=== PATIENT | female | born 1970 | race Caucasian/White ===

== ENCOUNTER → 2021-05-15 | Outpatient (CLI) | payer OTHER ==
--- NOTE | 2021-05-15 13:13 | RAD ---
XR KNEE_RT 1-2 VIEWS DATE: 05/15/2021 10:50 AM INDICATION: FALL DOWN STAIRS, PAIN COMPARISON: None. FINDINGS: Bones: There is no evidence of acute fracture or dislocation. Joints: The joint spaces are normal. There is no joint effusion. Miscellaneous: None. IMPRESSION: No evidence of acute fracture. Electronically signed by: Simone Drake MD (05/15/2021 1:11 PM) [id number]
--- NOTE | 2021-05-15 13:13 | RAD ---
XR LUMBAR SPINE 2-3V DATE: 05/15/2021 10:50 AM INDICATION: FALL DOWN STAIRS, PAIN COMPARISON: None. FINDINGS: Five non-rib bearing lumbar-type vertebral bodies are present. Bones/Alignment: No evidence of acute compression fracture. There is no listhesis. Joints: Multilevel predominately mild degenerative disc disease, moderate at L5-S1 Miscellaneous: None. IMPRESSION: No evidence of acute compression fracture. Electronically signed by: Simone Drake MD (05/15/2021 1:11 PM) [id number]
--- NOTE | 2021-05-15 13:13 | RAD ---
XR CERVICAL SPINE 2-3V DATE: 05/15/2021 10:50 AM INDICATION: FALL DOWN STAIRS, PAIN COMPARISON: None. FINDINGS: The cervical spine is visualized to the level of the cervicothoracic junction on the latera l views. Bones/Alignment: No evidence of acute fracture. There is no listhesis. Normal alignment of the later al masses of C1 on C2. Joints: Multilevel predominantly mild degenerative disc disease, moderate at C4-5 C5-6. The facets ar e normally aligned. Soft tissue: No significant prevertebral soft tissue swelling. IMPRESSION: No evidence of acute fracture. Electronically signed by: Simone Drake MD (05/15/2021 1:11 PM) [id number]
== END ==
LOC: RAD 10:21
PROVIDERS: ATTEND Family Medicine
DX: M50.321 Other cervical disc degeneration at C4-C5 level (principal); M51.37 Other intervertebral disc degeneration, lumbosacral region; W10.8XXA Fall (on) (from) other stairs and steps, initial encounter; M25.561 Pain in right knee
CPT/HCPCS: 72040; 72100; 73560